=== PATIENT | female | born 1990 | race Caucasian/White ===

== ENCOUNTER 2018-04-20 18:06 | Outpatient (CLI) | END 2018-04-20 19:47 | disposition home or self-care (01) ==

== ENCOUNTER 2018-04-25 21:06 | Inpatient (IN) | END 2018-04-28 17:08 | disposition home or self-care (01) | DRG 775 ==

== ENCOUNTER 2018-10-27 14:10 | Day surgery (SDC) | payer OTHER ==
[~2018-10-27] VITALS: Ht 162.6 cm; Wt 57.0 kg
[~2018-10-27 14:10] MED LIST: PNV11TAB PO
[2018-10-27 15:43] VITALS: BP 109/59; PULSE 75; RESP 16; Ht 162.6 cm; Wt 57.0 kg
--- NOTE | 2018-10-27 17:19 | PREAC ---
Date/Time of Note Date/Time of Note DATE: 10/27/18 TIME: 17:17 Anesthesia Eval and Record Evaluation Time Pre-Procedure Interview DATE: 10/27/18 TIME: 17:17 Age 27 Sex female NPO: 8 hrs Preoperative diagnosis Request for Sterilization Planned procedure Minilaparotomy and Bilateral Tubal Ligation Past Medical History Past Medical History: Includes : : (3), Para: (3) Surgery & Anesthesia Issues No known issue Meds Anticoagulation: No Beta Raphael within 24 hr: No Reason Beta Raphael not given: Pt. not on B-Raphael Reported Medications [id number] ( 19) 1 Each Tablet, 1 TAB PO DAILY, TAB 04/20/18 Meds reviewed: Yes Allergies Coded Allergies: No Known Allergy (Unverified , 04/25/18) Allergies Reviewed: Yes Labs/Studies Labs Reviewed: Reviewed by anesthesiologist Result Diagram: 10/27/18 1425 Laboratory Tests 10/27/18 14:25 Blood Bank Test 10/27/18 14:25 Antibody Screen POSITIVE Blood Type B POSITIVE test: Negative Studies: ECG (n/a), CXR (n/a) Pre-procedure Exam Last vitals Vital Signs Date Temp Pulse Resp B/P (MAP) Pulse Ox O2 O2 Flow FiO2 Time Delivery Rate 10/27/18 98.5 75 16 109/59 98 Room Air 15:43 (76) Airway: Adequate mouth opening, Adequate thyromental dist Mallampati: Mallampati II Teeth: Normal Lung: Normal Heart: Normal ASA Physical Status ASA physical status: 1 Emergency: None Planned Anesthetic General/MAC: ETT Nerve block: TAP (bilateral) Planned Pain Management Single shot nerve block, Parenteral pain med Pre-operative Attestations Prior to commencing anesthesia and surgery, the patient was re-evaluated, there was verification of: *The patient's identity *The results of appropriate recent lab work and preoperative vital signs *The above evaluation not changing prior to induction *Anesthetic plan, risk benefits, alternative and complications discussed with patient/family; questions answered; patient/family understands, accepts and wishes to proceed. CORY LEON MD Oct 27, 2018 17:19
--- NOTE | 2018-10-27 18:21 | NUR ---
[facility] IS HERE FOR SURGERY. BLOOD BANK CALLED , REPORTING THE T&S SHOES PT HAS ANTIBODY & IF PT NEEDS BLOOD IT MIGHT TAKES TIME TO GET READY, NOTIFIED DR JOSEPH , SURGERY CANCELLED PER DR JOSEPH & RESCHEDULED FOR 10/28/18 @ 1000. SPOKE TO PT & PT AGREED. REPORT CALLED TO [facility] TO MY KEMI RN. TRANSFERRED PT TO [facility] IN STABLE CONDITION, ACCOMPANIED WITH OR TRANSPORTER.
--- NOTE | 2018-10-27 18:58 | NUR ---
1819-RECEIVED PT. FROM [facility].SURGERY CANCELLED BY DR JOSEPH
--- NOTE | 2018-10-27 19:00 | NUR ---
1835-DISCHARGED PT. & INSTRUCTED TO REMAIN NPO AFTER MN. AND TO REPORT TO HOSPITAL IN AT 0800 TO EMERGENCY ER. VERBALIZED UNDERSTANDING.
[2018-10-28] MEDS ORDERED: ROCURONIUM 50 MG INJ ONE (08:23)
[2018-10-28] MEDS ORDERED: MIDAZOLAM 1 MG/ML 2 ML INJ ONE (08:23)
[2018-10-28] MEDS ORDERED: PROPOFOL 0 ML ONE (08:23)
[2018-10-28] MEDS ORDERED: ROPIVACAINE 0.2% 20 ML VIAL ONE (08:23)
[2018-10-28] MEDS ORDERED: FENTAnyl 50 MCG/ML VIAL ONE (08:23)
== END 2018-10-27 18:35 | disposition home or self-care (01) ==
LOC: SDS 14:10
PROVIDERS: ATTEND Obstetrics & Gynecology
DX: Z30.2 Encounter for sterilization (principal); Z53.8 Procedure and treatment not carried out for other reasons
CPT/HCPCS: 85025; 86850; 86870; 86900; 86901; 86902; 86920; J2250; J2795; J3010

== ENCOUNTER 2018-10-28 08:26 | Day surgery (SDC) | payer OTHER ==
[2018-10-28] VITALS (14 sets, daily range): BP systolic 102–135; BP diastolic 54–85; PULSE 72–94; RESP 13–27; Ht 162.6 cm; Wt 57.0 kg
[~2018-10-28] VITALS: Ht 162.6 cm; Wt 57.0 kg
[~2018-10-28 08:26] MED LIST changes: +SEVOFLURANE 15 MIN ONE
[2018-10-28] MEDS ORDERED: PROPOFOL 20 ML ONE (09:11)
[2018-10-28] MEDS ORDERED: MIDAZOLAM 1 MG/ML 2 ML INJ ONE (09:11)
[2018-10-28] MEDS ORDERED: FENTAnyl 50 MCG/ML VIAL ONE (09:11)
[2018-10-28] MEDS ORDERED: ROCURONIUM 50 MG INJ ONE (09:11)
[2018-10-28] MEDS ORDERED: ROPIVACAINE 0.2% 20 ML VIAL ONE (09:11)
[2018-10-28] MEDS ORDERED: BUPIVACAINE 0.5%/EPI (SDV) 30 ML INJ ONE ×2 (09:19→09:48)
[2018-10-28] MEDS ORDERED: NEOSTIGMINE 3 MG/3 ML SYRINGE ONE (11:08)
[2018-10-28] MEDS ORDERED: GLYCOPYRROLATE 1 MG INJ ONE (11:08)
[2018-10-28] MEDS ORDERED: CEFAZOLIN 1 GM INJ ONE (11:08)
[2018-10-28] MEDS ORDERED: KETOROLAC 30 MG INJ ONE (11:09)
[2018-10-28] MEDS ORDERED: ONDANSETRON 4 MG INJ ONE (11:09)
[2018-10-28] MEDS ORDERED: DEXAMETHASONE 4 MG/ML 5 ML INJ ONE (11:09)
[2018-10-28] MEDS ORDERED: METOCLOPRAMIDE 10 MG INJ ONE (11:09)
--- NOTE | 2018-10-28 11:17 | PREAC ---
Date/Time of Note Date/Time of Note DATE: 10/28/18 TIME: 11:15 Anesthesia Eval and Record Evaluation Time Pre-Procedure Interview DATE: 10/28/18 TIME: 11:15 Age 27 Sex female NPO: 2 hrs Preoperative diagnosis Patient Request for BTL Planned procedure Minilaparotomy and Bilateral Tubal Ligation Past Medical History Past Medical History: None Surgery & Anesthesia Issues No known issue Meds Anticoagulation: No Beta Raphael within 24 hr: No Reason Beta Raphael not given: Pt. not on B-Raphael Reported Medications [id number] [id number]-EZ-XLM ( 19) 1 Each Tablet, 1 TAB PO DAILY, TAB 04/20/18 Meds reviewed: Yes Allergies Coded Allergies: No Known Allergy (Unverified , 10/28/18) Allergies Reviewed: Yes Labs/Studies Labs Reviewed: Reviewed by anesthesiologist test: Negative Studies: ECG (n/a), CXR (n/a) Pre-procedure Exam Last vitals Vital Signs Date Temp Pulse Resp B/P (MAP) Pulse Ox O2 O2 Flow FiO2 Time Delivery Rate 10/28/18 98.2 72 20 104/70 99 Room Air 08:45 (81) Airway: Adequate mouth opening, Adequate thyromental dist Mallampati: Mallampati II Teeth: Normal Lung: Normal Heart: Normal ASA Physical Status ASA physical status: 1 Emergency: None Planned Anesthetic General/MAC: ETT Nerve block: TAP (bilateral) Planned Pain Management Single shot nerve block, Parenteral pain med Pre-operative Attestations Prior to commencing anesthesia and surgery, the patient was re-evaluated, there was verification of: *The patient's identity *The results of appropriate recent lab work and preoperative vital signs *The above evaluation not changing prior to induction *Anesthetic plan, risk benefits, alternative and complications discussed with patient/family; questions answered; patient/family understands, accepts and wishes to proceed. CORY LEON MD Oct 28, 2018 11:17
[2018-10-28] MEDS ORDERED: METOCLOPRAMIDE 10 MG INJ IV PRN (11:30)
[2018-10-28] MEDS ORDERED: LABETALOL HCL 20MG INJ IV PRN (11:30)
[2018-10-28] MEDS ORDERED: ONDANSETRON 4 MG INJ IV PRN ×2 (11:30)
[2018-10-28] MEDS ORDERED: morphine 2 MG INJ IV PRN (11:30)
[2018-10-28] MEDS ORDERED: EPHEDrine SULFATE 50 MG/5 ML SYG IV PRN (11:30)
[2018-10-28] MEDS ORDERED: OXYCODONE/ACETAMINOPHEN (5/325) TAB PO PRN (11:30)
[2018-10-28] MEDS ORDERED: FENTAnyl 50 MCG/ML VIAL IV PRN ×3 (11:30)
[2018-10-28] MEDS ORDERED: HYDROmorphONE 1 MG/5 ML IV SYRINGE IV PRN ×2 (11:30)
[2018-10-28] MEDS ORDERED: MEPERIDINE 25 MG INJ IV PRN (11:30)
[2018-10-28] MEDS ORDERED: KETOROLAC 30 MG INJ IV PRN (11:30)
[2018-10-28] MEDS ORDERED: hydrALAzine 20 MG INJ IV PRN (11:30)
[2018-10-28] MEDS ORDERED: HYDROCODONE/APAP (5/325) TAB PO PRN ×2 (11:30)
[2018-10-28] MEDS ORDERED: DIPHENHYDRAMINE 50 MG INJ IV PRN (11:30)
--- NOTE | 2018-10-28 11:30 | SIPON ---
Date/Time of Note Date/Time of Note DATE: 10/28/18 TIME: 11:28 Operative Report Preoperative Diagnosis Voluntary sterilization Postoperative Diagnosis Same Operation/Procedure Performed Mini laparotomy BTL Surgeon Shanthi Joseph MD medical office assistant instructor information technology administrator Anesthesia: general Estimated blood loss: minimal Transfusion Required none Specimen Fallopian tubes Grafts/Implants none Complications none SHANTHI JOSEPH MD Oct 28, 2018 11:30
[2018-10-28] MEDS: HYDROmorphONE 1 MG/5 ML IV SYRINGE IV PRN ×2 (11:41→11:50)
--- NOTE | 2018-10-28 11:45 | PAC ---
Date/Time of Note Date/Time of Note DATE: 10/28/18 TIME: 11:45 Post-Anesthesia Notes Post-Anesthesia Note Last documented vital signs Vital Signs Date Temp Pulse Resp B/P (MAP) Pulse Ox O2 O2 Flow FiO2 Time Delivery Rate 10/28/18 98.2 72 20 104/70 99 Room Air 11:45 (81) Activity: WNL Respiratory function: WNL Cardiovascular function: WNL Mental status: Baseline Pain reasonably controlled: Yes Hydration appropriate: Yes Nausea/Vomiting absent: Yes CORY LEON MD Oct 28, 2018 11:45
--- NOTE | 2018-10-28 11:45 | PREOPHP ---
DATE OF ADMISSION: 10/28/2018 HISTORY OF PRESENT ILLNESS: A 27-year-old female 3, para 3, last menstrual period 10/13/2018 admitted for voluntary sterilization. PAST MEDICAL HISTORY: Asthma. PAST SURGICAL HISTORY: Tonsillectomy and a transvaginal egg aspiration. FAMILY HISTORY: Noncontributory. ALLERGIES: NO KNOWN ALLERGIES. PHYSICAL EXAMINATION: VITAL SIGNS: The patient is afebrile. Vital signs stable. HEAD, NECK AND CHEST: Within normal limits. ABDOMEN: Soft, nontender, nondistended. PELVIC: Normal. EXTREMITIES: Within normal limits. NEUROLOGIC: Within normal limits. IMPRESSION: Voluntary sterilization. PLAN: Plan is Minilaparotomy, bilateral tubal ligation. The risks, benefits and alternatives of the procedure were explained to the patient. The patient has been counseled about all of her contraceptive options including all methods of sterilization. It was explained to the patient that with bilateral tubal ligation there is a chance of failure resulting in ectopic and/or intrauterine . After counseling, the patient said she understood and gave informed consent for the procedure. Dictated By: SHANTHI KOCH/LILIAM Conf#: [id number] DID#: [id number] ASHA
--- NOTE | 2018-10-28 12:50 | OPR ---
DATE OF OPERATION: 10/28/2018 PREOPERATIVE DIAGNOSIS: Voluntary sterilization. POSTOPERATIVE DIAGNOSIS: Voluntary sterilization. OPERATION PERFORMED: Minilaparotomy, bilateral tubal ligation. SURGEON: Shanthi Sylvester MD. ANESTHESIA: General. ANESTHESIOLOGIST: Dr. Lucia PROCEDURE: The patient was taken to operating room, placed on the operating table in supine position. After adequate general anesthesia was given, the area was prepared and draped in the usual sterile fashion. Using a scalpel, a Pfannenstiel incision was made about 2 fingerbreadths over the symphysis pubis. Incision was carried down to the fascia. The fascia was incised and extended bilaterally with Adam scissors. Two Lobo's were used to separate the fascia from the muscle. The muscle was taken down to peritoneum. The peritoneum was secured with 2 Kellys and incised with Metzenbaum scissors. Upon entering the peritoneal cavity, the right fallopian tube was grasped with a [place] clamp and followed to its fimbrial end to confirm its identity. Using 0 plain suture ligature, a 5 cm segment of the right fallopian tube was doubly ligated. Using Metzenbaum scissors, a portion of the right fallopian tube above the ligated area was excised and sent to pathology. Same procedure was repeated on the fallopian tube. After assuring hemostasis, the peritoneum was closed with 0 chromic continuous. Fascia was closed with 0 Vicryl continuous. Subcutaneous tissue was approximated with 2-0 chromic. The skin was closed with favio. ESTIMATED BLOOD LOSS: Minimal. COUNTS: All counts were correct. Dictated By: SHANTHI KOCH/LILIAM Conf#: [id number] DID#: [id number]
== END 2018-10-28 13:00 | disposition home or self-care (01) ==
LOC: SDS 08:26
PROVIDERS: ATTEND Obstetrics & Gynecology
DX: Z30.2 Encounter for sterilization (principal)
CPT/HCPCS: 58600; J0690; J1100; J1170; J1885; J2175; J2405; J2710; J2765; Z7610; 88302; J2250; J2795; J3010